=== PATIENT | female | born 1960 | race Caucasian/White ===

== ENCOUNTER 2017-08-26 15:00 | Outpatient (RCR) | payer MEDICARE, SELFPAY ==
[2017-08-19 18:53] VITALS: BP 164/68; PULSE 64; RESP 20; TEMP 36.9; BMI 46.6
--- NOTE | 2017-08-19 20:58 | PCM.WC.HP ---
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 Status: Chronic Current Visit: Yes Code(s): I70.235 - Atherosclerosis of [place] arteries of right leg with ulceration of other part of foot (3) Atherosclerosis of [place] arteries of left leg with ulceration of other part of foot Status: Chronic Current Visit: Yes Code(s): I70.245 - Atherosclerosis of [place] arteries of left leg with ulceration of other part of foot (4) Diabetes Status: Chronic Current Visit: Yes Qualifiers: Diabetes mellitus type: type 2 Diabetes mellitus complication status: with unspecified complications Diabetes mellitus terminal system operator insulin use: unspecified care home insulin use status Qualified Code(s): E11.8 - Type 2 diabetes mellitus with unspecified complications Code(s): E11.9 - Type 2 diabetes mellitus without complications (5) CAD (coronary artery disease) of bypass graft Status: Chronic Current Visit: Yes Qualifiers: [place] vs. transplanted heart: [place] heart Associated angina: with unspecified angina Qualified Code(s): I25.709 - Atherosclerosis of coronary artery bypass graft(s), unspecified, with unspecified angina pectoris Code(s): I25.810 - Atherosclerosis of coronary artery bypass graft(s) without angina pectoris (6) Lymphedema of both lower extremities Status: Chronic Current Visit: Yes Code(s): I89.0 - Lymphedema, not elsewhere classified History of Present Illness Date of Service: 08/19/17 Chief Complaint: Wounds of toes b/l History of Wound: Ina is a 56 yo female that is a resident of [facility] who presents for evaluation of wounds of her toes bilaterally. The areas on her toes are black and nothing has been used on them. She has a h/o PAD with previous angioplasty done at [facility] and arterial studies done at [facility] as well within the last year. She states that the wounds have been present for about a month and likely occurred from her toes being hit against things while in her wheelchair. She doesn't always wear shoes while in the nursing facility. She denies fever or chills. She has lymphedema which they are treating with CARLOS bandage wraps. Past Medical History Past Medical History: Chronic Problems PAD (peripheral artery disease) (Chronic) Atherosclerosis of [place] arteries of right leg with ulceration of other part of foot (Chronic) Atherosclerosis of [place] arteries of left leg with ulceration of other part of foot (Chronic) Lymphedema of both lower extremities (Chronic) Shoulder pain, bilateral (Chronic) Diabetes (Chronic) Anxiety (Chronic) Hypertension (Chronic) H/O mitral valve replacement with mechanical valve (Chronic) CAD (coronary artery disease) of bypass graft (Chronic) History of ischemic cerebrovascular accident (CVA) with residual deficit (Chronic) Hyperlipidemia (Chronic) Cardiomyopathy (Chronic) h/o cva with left sided weakness (Chronic) Surgical History: - - MVR, TVR, BL LE vascular intervention, cardiac bypass surgery x 2010,2013, [facility]ic[facility] and [facility]. Allergies/Adverse Reactions: Allergies adhesive tape Allergy (Verified 07/06/17 11:17) Rash ciprofloxacin Allergy (Verified 07/06/17 11:17) Diarrhea Home Medications: Ambulatory Orders Medication Instructions Recorded Insulin Glargine [Lantus SoloStar 30 units SC QHS 06/18/13 Pen] Insulin Lispro [Humalog] 12 unit SQ TID 06/18/13 Potassium Chloride [K-Dur] 20 meq PO BID 06/18/13 Acetaminophen [Tylenol Tablet] 650 mg PO Q4H PRN PRN 11/30/15 Aspirin [Aspirin, Baby] 81 mg PO DAILY@0800 11/30/15 Atorvastatin Calcium [Lipitor] 80 mg PO QHS 11/30/15 Carvedilol [Coreg (Beta Carolyn)] 3.125 mg PO BID 11/30/15 Duloxetine Hcl [Cymbalta] 60 mg PO DAILY 11/30/15 Levothyroxine Sodium [Unithroid] 62.5 mcg PO DAILY 11/30/15 Ondansetron [Zofran Odt] 4 mg PO Q8H PRN PRN 11/30/15 Nystatin/Triamcin Oint [Mycolog] 1 applic TOPICAL BID 01/22/16 Amiodarone HCl [Cordarone] 200 mg PO DAILY tablet 07/01/17 Gabapentin [Neurontin] 300 mg PO TIDCM #1 tablet 07/01/17 Torsemide [Demadex] 150 mg PO DAILY tablet 07/01/17 Warfarin [Coumadin] 10 mg PO DAILY #60 tablet 07/01/17 Albuterol Inhaler [Ventolin Hfa] 2 puff INHALATION Q6H PRN PRN 07/06/17 Ipratropium/Albuterol Sulfate 3 ml INHALATION DAILY PRN PRN 07/06/17 [Duoneb] Isosorbide Dinitrate 10 mg PO TID 07/06/17 Meclizine HCl [Antivert] 25 mg PO TID PRN PRN 07/06/17 Nitroglycerin [Nitrostat] 0.4 mg SUBLINGUAL Q5M PRN 07/06/17 Enoxaparin [Lovenox] 130 mg SC Q12@0600,1800 #10 syringe 07/08/17 Lisinopril [Zestril] 5 mg PO DAILY tablet 07/08/17 Nystatin Powder [Mycostatin Powder] 1 applic TOPICAL BID bottle 07/08/17 - Family History Maternal Heart Disease, Hypertension Paternal Diabetes Lives: Group Home Smoking Status: Light Smoker (<10/day) Tobacco Use: Cigarettes Alcohol: None Drugs: None Review of Systems Constitutional: Denies: Chills, Fever, Weight Change Eyes: Denies: Pain, Vision Change HEENT: Reports: Difficulty Hearing. Denies: Difficulty Swallowing, Sinus Congestion Cardiovascular: Denies: Chest Pain, Palpitations Respiratory: Denies: Cough, Shortness of Breath Gastrointestinal: Denies: Diarrhea, Nausea, Vomiting Genitourinary: Denies: Dysuria, Hematuria Musculoskeletal: Reports: Leg Pain Skin: Reports: Wounds Endocrine: Denies: Heat/ Cold Intolerance, Polydipsia, Polyuria Hematologic/ Lymphatic: Denies: Easy Bruising, Easy Bleeding - Physical Exam Vital Signs Temp Pulse Resp BP 98.4 F 64 20 H 164/68 H 08/19/17 18:53 08/19/17 18:53 08/19/17 18:53 08/19/17 18:53 General: Alert, Oriented x3, Cooperative, No apparent distress HEENT: Atraumatic, Normocephalic Oral: Moist Mucosa Lungs: Clear to auscultation Cardiovascular: Regular rate, Regular Rhythm Abdomen: Soft, Non Tender, Obese Extremities: Diminished Peripheral Pulses, Edema Skin: Ulcer/ Wound Wound Measurements and Assessment WC - Nurse 1 - General Ulcer Measurement Start: 08/19/17 17:11 Freq: Status: Active Protocol: Activity Type Activity Date Activity User E-Sign Co-Sign Detail Recorded Client Recorded Date Recorded By Document 08/19/17 18:53 TM [id number] 08/19/17 19:07 08/19/17 18:53 Wound Center Nurse 1 [Edema Assessment] -Lower Limb Edema Present Yes -Right Calf (cm) 54.5 -Right Ankle (cm) 34.7 -Left Calf (cm) 58.5 -Left Ankle (cm) 37.6 WC - Nurse 2 - General Ulcer CM Notes Start: 08/19/17 17:11 Freq: Status: Active Protocol: Activity Type Activity Date Activity User E-Sign Co-Sign Detail Recorded Client Recorded Date Recorded By Document 08/19/17 18:04 TM [id number] 08/19/17 18:48 08/19/17 18:04 Wound Center Nurse 2 [Procedure/Treatment] #8 left 5th toe -Time 18:15 -Correct Patient Yes -Correct Side, Site, Position Yes -Correct Procedure Yes -Procedure Performed Yes -Type of Procedure Debridement -Clinical Debridement Subcutaneous -Post Debridement Size (cm) - Length 0.7 -Post Debridement Size (cm) - Width 0.5 -Post Debridement Size (cm) - Depth 0.1 -Total Square Cm 0.35 -Wound/Ulcer Outcome Not Healed -Ulcer Cleansing Rinsed/ Irrigated with Saline -Foul Odor after Cleansing No -Bioengineered Tissue No -Cetacaine [place] No -Topical Lidocaine (%) 5 -Bleeding Controlled with Pressure -Treatment Response Procedure Tolerated Well #7 left 3rd toe -Time 18:14 -Correct Patient Yes -Correct Side, Site, Position Yes -Correct Procedure Yes -Procedure Performed Yes -Type of Procedure Debridement -Clinical Debridement Subcutaneous -Post Debridement Size (cm) - Length 0.6 -Post Debridement Size (cm) - Width 0.4 -Post Debridement Size (cm) - Depth 0.1 -Total Square Cm 0.24 -Wound/Ulcer Outcome Not Healed -Ulcer Cleansing Rinsed/ Irrigated with Saline -Foul Odor after Cleansing No -Bioengineered Tissue No -Cetacaine [place] No -Topical Lidocaine (%) 5 -Bleeding Controlled with Pressure -Treatment Response Procedure Tolerated Well #6 left 2nd lateral toe -Time 18:08 -Correct Patient Yes -Correct Side, Site, Position Yes -Correct Procedure Yes -Procedure Performed Yes -Type of Procedure Debridement -Clinical Debridement Subcutaneous -Post Debridement Size (cm) - Length 0.9 -Post Debridement Size (cm) - Width 0.3 -Post Debridement Size (cm) - Depth 0.1 -Total Square Cm 0.27 -Wound/Ulcer Outcome Not Healed -Ulcer Cleansing Rinsed/ Irrigated with Saline -Foul Odor after Cleansing No -Bioengineered Tissue No -Cetacaine [place] No -Topical Lidocaine (%) 5 -Bleeding Controlled with Pressure -Treatment Response Procedure Tolerated Well #5 right 4th toe -Time 18:08 -Correct Patient Yes -Correct Side, Site, Position Yes -Correct Procedure Yes -Procedure Performed Yes -Type of Procedure Debridement -Clinical Debridement Subcutaneous -Post Debridement Size (cm) - Length 0.6 -Post Debridement Size (cm) - Width 0.3 -Post Debridement Size (cm) - Depth 0.1 -Total Square Cm 0.18 -Wound/Ulcer Outcome Not Healed -Ulcer Cleansing Rinsed/ Irrigated with Saline -Foul Odor after Cleansing No -Bioengineered Tissue No -Cetacaine [place] No -Topical Lidocaine (%) 5 -Bleeding Controlled with Pressure -Treatment Response Procedure Tolerated Well #4 right 2nd medial toe -Time 18:07 -Correct Patient Yes -Correct Side, Site, Position Yes -Correct Procedure Yes -Procedure Performed Yes -Type of Procedure Debridement -Clinical Debridement Subcutaneous -Post Debridement Size (cm) - Length 0.5 -Post Debridement Size (cm) - Width 0.5 -Post Debridement Size (cm) - Depth 0.1 -Total Square Cm 0.25 -Wound/Ulcer Outcome Not Healed -Ulcer Cleansing Rinsed/ Irrigated with Saline -Foul Odor after Cleansing No -Bioengineered Tissue No -Cetacaine [place] No -Topical Lidocaine (%) 5 -Bleeding Controlled with Pressure -Treatment Response Procedure Tolerated Well #3 right 2nd lateral toe -Time 18:06 -Correct Patient Yes -Correct Side, Site, Position Yes -Correct Procedure Yes -Procedure Performed Yes -Type of Procedure Debridement -Clinical Debridement Subcutaneous -Post Debridement Size (cm) - Length 0.3 -Post Debridement Size (cm) - Width 0.2 -Post Debridement Size (cm) - Depth 0.1 -Total Square Cm 0.06 -Wound/Ulcer Outcome Not Healed -Ulcer Cleansing Rinsed/ Irrigated with Saline -Foul Odor after Cleansing No -Bioengineered Tissue No -Cetacaine [place] No -Topical Lidocaine (%) 5 -Bleeding Controlled with Pressure -Treatment Response Procedure Tolerated Well #2 left 2nd toe -Time 18:05 -Correct Patient Yes -Correct Side, Site, Position Yes -Correct Procedure Yes -Procedure Performed Yes -Type of Procedure Debridement -Clinical Debridement Subcutaneous -Post Debridement Size (cm) - Length 0.2 -Post Debridement Size (cm) - Width 0.5 -Post Debridement Size (cm) - Depth 0.1 -Total Square Cm 0.10 -Wound/Ulcer Outcome Not Healed -Ulcer Cleansing Rinsed/ Irrigated with Saline -Foul Odor after Cleansing No -Bioengineered Tissue No -Cetacaine [place] No -Topical Lidocaine (%) 5 -Bleeding Controlled with Pressure -Treatment Response Procedure Tolerated Well #1 left great toe -Time 18:05 -Correct Patient Yes -Correct Side, Site, Position Yes -Correct Procedure Yes -Procedure Performed Yes -Type of Procedure Debridement -Clinical Debridement Subcutaneous -Post Debridement Size (cm) - Length 0.7 -Post Debridement Size (cm) - Width 1.0 -Post Debridement Size (cm) - Depth 0.1 -Total Square Cm 0.70 -Wound/Ulcer Outcome Not Healed -Ulcer Cleansing Rinsed/ Irrigated with Saline -Foul Odor after Cleansing No -Bioengineered Tissue No -Cetacaine [place] No -Topical Lidocaine (%) 5 -Bleeding Controlled with Pressure -Treatment Response Procedure Tolerated Well [See Physician Procedure note for Specifics] Pain Scale: 0-10 Numeric [Pain] -Is Patient Pain Free? Yes Psych/Mental Status: Normal Affect, Appropriate Debridement Note Post-Debridement Measurements/Treatment WC - Nurse 2 - General Ulcer CM Notes Start: 08/19/17 17:11 Freq: Status: Active Protocol: Activity Type Activity Date Activity User E-Sign Co-Sign Detail Recorded Client Recorded Date Recorded By Document 08/19/17 18:04 TM [id number] 08/19/17 18:48 TM 08/19/17 18:04 Wound Center Nurse 2 #8 left 5th toe -Time 18:15 -Correct Patient Yes -Correct Side, Site, Position Yes -Correct Procedure Yes -Procedure Performed Yes -Type of Procedure Debridement -Clinical Debridement Subcutaneous -Post Debridement Size (cm) - Length 0.7 -Post Debridement Size (cm) - Width 0.5 -Post Debridement Size (cm) - Depth 0.1 -Total Square Cm 0.35 -Wound/Ulcer Outcome Not Healed -Ulcer Cleansing Rinsed/ Irrigated with Saline -Foul Odor after Cleansing No -Bioengineered Tissue No -Cetacaine [place] No -Topical Lidocaine (%) 5 -Bleeding Controlled with Pressure -Treatment Response Procedure Tolerated Well #7 left 3rd toe -Time 18:14 -Correct Patient Yes -Correct Side, Site, Position Yes -Correct Procedure Yes -Procedure Performed Yes -Type of Procedure Debridement -Clinical Debridement Subcutaneous -Post Debridement Size (cm) - Length 0.6 -Post Debridement Size (cm) - Width 0.4 -Post Debridement Size (cm) - Depth 0.1 -Total Square Cm 0.24 -Wound/Ulcer Outcome Not Healed -Ulcer Cleansing Rinsed/ Irrigated with Saline -Foul Odor after Cleansing No -Bioengineered Tissue No -Cetacaine [place] No -Topical Lidocaine (%) 5 -Bleeding Controlled with Pressure -Treatment Response Procedure Tolerated Well #6 left 2nd lateral toe -Time 18:08 -Correct Patient Yes -Correct Side, Site, Position Yes -Correct Procedure Yes -Procedure Performed Yes -Type of Procedure Debridement -Clinical Debridement Subcutaneous -Post Debridement Size (cm) - Length 0.9 -Post Debridement Size (cm) - Width 0.3 -Post Debridement Size (cm) - Depth 0.1 -Total Square Cm 0.27 -Wound/Ulcer Outcome Not Healed -Ulcer Cleansing Rinsed/ Irrigated with Saline -Foul Odor after Cleansing No -Bioengineered Tissue No -Cetacaine [place] No -Topical Lidocaine (%) 5 -Bleeding Controlled with Pressure -Treatment Response Procedure Tolerated Well #5 right 4th toe -Time 18:08 -Correct Patient Yes -Correct Side, Site, Position Yes -Correct Procedure Yes -Procedure Performed Yes -Type of Procedure Debridement -Clinical Debridement Subcutaneous -Post Debridement Size (cm) - Length 0.6 -Post Debridement Size (cm) - Width 0.3 -Post Debridement Size (cm) - Depth 0.1 -Total Square Cm 0.18 -Wound/Ulcer Outcome Not Healed -Ulcer Cleansing Rinsed/ Irrigated with Saline -Foul Odor after Cleansing No -Bioengineered Tissue No -Cetacaine [place] No -Topical Lidocaine (%) 5 -Bleeding Controlled with Pressure -Treatment Response Procedure Tolerated Well #4 right 2nd medial toe -Time 18:07 -Correct Patient Yes -Correct Side, Site, Position Yes -Correct Procedure Yes -Procedure Performed Yes -Type of Procedure Debridement -Clinical Debridement Subcutaneous -Post Debridement Size (cm) - Length 0.5 -Post Debridement Size (cm) - Width 0.5 -Post Debridement Size (cm) - Depth 0.1 -Total Square Cm 0.25 -Wound/Ulcer Outcome Not Healed -Ulcer Cleansing Rinsed/ Irrigated with Saline -Foul Odor after Cleansing No -Bioengineered Tissue No -Cetacaine [place] No -Topical Lidocaine (%) 5 -Bleeding Controlled with Pressure -Treatment Response Procedure Tolerated Well #3 right 2nd lateral toe -Time 18:06 -Correct Patient Yes -Correct Side, Site, Position Yes -Correct Procedure Yes -Procedure Performed Yes -Type of Procedure Debridement -Clinical Debridement Subcutaneous -Post Debridement Size (cm) - Length 0.3 -Post Debridement Size (cm) - Width 0.2 -Post Debridement Size (cm) - Depth 0.1 -Total Square Cm 0.06 -Wound/Ulcer Outcome Not Healed -Ulcer Cleansing Rinsed/ Irrigated with Saline -Foul Odor after Cleansing No -Bioengineered Tissue No -Cetacaine [place] No -Topical Lidocaine (%) 5 -Bleeding Controlled with Pressure -Treatment Response Procedure Tolerated Well #2 left 2nd toe -Time 18:05 -Correct Patient Yes -Correct Side, Site, Position Yes -Correct Procedure Yes -Procedure Performed Yes -Type of Procedure Debridement -Clinical Debridement Subcutaneous -Post Debridement Size (cm) - Length 0.2 -Post Debridement Size (cm) - Width 0.5 -Post Debridement Size (cm) - Depth 0.1 -Total Square Cm 0.10 -Wound/Ulcer Outcome Not Healed -Ulcer Cleansing Rinsed/ Irrigated with Saline -Foul Odor after Cleansing No -Bioengineered Tissue No -Cetacaine [place] No -Topical Lidocaine (%) 5 -Bleeding Controlled with Pressure -Treatment Response Procedure Tolerated Well #1 left great toe -Time 18:05 -Correct Patient Yes -Correct Side, Site, Position Yes -Correct Procedure Yes -Procedure Performed Yes -Type of Procedure Debridement -Clinical Debridement Subcutaneous -Post Debridement Size (cm) - Length 0.7 -Post Debridement Size (cm) - Width 1.0 -Post Debridement Size (cm) - Depth 0.1 -Total Square Cm 0.70 -Wound/Ulcer Outcome Not Healed -Ulcer Cleansing Rinsed/ Irrigated with Saline -Foul Odor after Cleansing No -Bioengineered Tissue No -Cetacaine [place] No -Topical Lidocaine (%) 5 -Bleeding Controlled with Pressure -Treatment Response Procedure Tolerated Well Pain Scale: 0-10 Numeric Is Patient Pain Free? Yes Wound debrided: left 5th toe Laterality: Left Type of Debridement: Excisional debridement Anesthesia Used: 4% Lidocaine Solution, 5% Lidocaine Gel Depth: Down to and including healthy tissue, in the subcutaneous layer Percentage of wound debrided: 100 Instrument Used: 5mm curette Tissue Removed: eschar and devitalized tissue Severity: Fat Layer Exposed Amount of bleeding with debridement: Mild Bleeding Controlled with: Compression and gauze Patient tolerated procedure well - Additional Wound Wound debrided: left 3rd toe Laterality: Left Type of Debridement: Excisional debridement Anesthesia Used: 4% Lidocaine Solution, 5% Lidocaine Gel Depth: Down to and including healthy tissue, in the subcutaneous layer Percentage of wound debrided: 100 Instrument Used: 5mm curette Tissue Removed: eschar and devitalized tissue Severity: Fat Layer Exposed Amount of bleeding with debridement: Mild Bleeding Controlled with: Compression and gauze Patient tolerated procedure: Patient tolerated procedure well - Additional Wound Wound debrided: left 2nd lateral toe Laterality: Left Type of Debridement: Excisional debridement Anesthesia Used: 4% Lidocaine Solution, 5% Lidocaine Gel Depth: Down to and including healthy tissue, in the subcutaneous layer Percentage of wound debrided: 100 Instrument Used: 5mm curette Tissue Removed: eschar and devitalized tissue Severity: Fat Layer Exposed Amount of bleeding with debridement: Mild Bleeding Controlled with: Compression and gauze Patient tolerated procedure: Patient tolerated procedure well - Additional Wound Wound debrided: right 4th toe Laterality: Right Type of Debridement: Excisional debridement Anesthesia Used: 4% Lidocaine Solution, 5% Lidocaine Gel Depth: Down to and including healthy tissue, in the subcutaneous layer Percentage of wound debrided: 100 Instrument Used: 5mm curette Tissue Removed: eschar and devitalized tissue Severity: Fat Layer Exposed Amount of bleeding with debridement: Mild Bleeding Controlled with: Compression and gauze Patient tolerated procedure: Patient tolerated procedure well - Additional Wound Wound debrided: right 2nd medial toe Laterality: Right Type of Debridement: Excisional debridement Anesthesia Used: 4% Lidocaine Solution, 5% Lidocaine Gel Depth: Down to and including healthy tissue, in the subcutaneous layer Percentage of wound debrided: 100 Instrument Used: 5mm curette Tissue Removed: eschar and devitalized tissue Severity: Fat Layer Exposed Amount of bleeding with debridement: Mild Bleeding Controlled with: Compression and gauze Patient tolerated procedure: Patient tolerated procedure well - Additional Wound Wound debrided: right 2nd lateral toe Laterality: Right Type of Debridement: Excisional debridement Anesthesia Used: 4% Lidocaine Solution, 5% Lidocaine Gel Depth: Down to and including healthy tissue, in the subcutaneous layer Percentage of wound debrided: 100 Instrument Used: 5mm curette Tissue Removed: eschar and devitalized tissue Severity: Fat Layer Exposed Amount of bleeding with debridement: Mild Bleeding Controlled with: Compression and gauze Patient tolerated procedure: Patient tolerated procedure well - Additional Wound Wound debrided: left 2nd toe Laterality: Left Type of Debridement: Excisional debridement Anesthesia Used: 4% Lidocaine Solution, 5% Lidocaine Gel Depth: Down to and including healthy tissue, in the subcutaneous layer Percentage of wound debrided: 100 Instrument Used: 5mm curette Tissue Removed: eschar and devitalized tissue Severity: Fat Layer Exposed Amount of bleeding with debridement: Mild Bleeding Controlled with: Compression and gauze Patient tolerated procedure: Patient tolerated procedure well - Additional Wound Wound debrided: left great toe Laterality: Left Type of Debridement: Excisional debridement Anesthesia Used: 4% Lidocaine Solution, 5% Lidocaine Gel Depth: Down to and including healthy tissue, in the subcutaneous layer Percentage of wound debrided: 100 Instrument Used: 5mm curette Tissue Removed: eschar and devitalized tissue Severity: Fat Layer Exposed Amount of bleeding with debridement: Mild Bleeding Controlled with: Compression and gauze Patient tolerated procedure: Patient tolerated procedure well Assessment/Plan Active Problems PAD (peripheral artery disease) (Chronic) Atherosclerosis of [place] arteries of right leg with ulceration of other part of foot (Chronic) Atherosclerosis of [place] arteries of left leg with ulceration of other part of foot (Chronic) Lymphedema of both lower extremities (Chronic) Diabetes (Chronic) CAD (coronary artery disease) of bypass graft (Chronic) Assessment: arterial ulcers of toes b/l feet. PAD Plan: Ina's wounds were evaluated and debrided today. The areas of black eschar were unroofed as above and revealed multiple shallow ulcers/wounds. These will be treated with Aquacel Ag and her edema will continue to be treated with Carlos wraps. Will obtain her previous arterial studies from [facility]. Will have her wear footwear or foam booties while she is in wheelchair to avoid injury and recurrent ulcerations. Recent labs reviewed. Encouraged increased protein intake and offloading of her wounds. She was advised to call sooner if increased erythema or drainage. F/U in 1 week.
--- NOTE | 2017-08-19 21:12 | HP.PCM_ITS ---
(1) PAD (peripheral artery disease) Status: Chronic Current Visit: Yes Code(s): I73.9 - Peripheral vascular disease, unspecified (2) Atherosclerosis of [place] arteries of right leg with ulceration of other part of foot Status: Chronic Current Visit: Yes Code(s): I70.235 - Atherosclerosis of [place] arteries of right leg with ulceration of other part of foot (3) Atherosclerosis of [place] arteries of left leg with ulceration of other part of foot Status: Chronic Current Visit: Yes Code(s): I70.245 - Atherosclerosis of [place] arteries of left leg with ulceration of other part of foot (4) Diabetes Status: Chronic Current Visit: Yes Qualifiers: Diabetes mellitus type: type 2 Diabetes mellitus complication status: with unspecified complications Diabetes mellitus clinic mgr insulin use: unspecified group home insulin use status Qualified Code(s): E11.8 - Type 2 diabetes mellitus with unspecified complications Code(s): E11.9 - Type 2 diabetes mellitus without complications (5) CAD (coronary artery disease) of bypass graft Status: Chronic Current Visit: Yes Qualifiers: [place] vs. transplanted heart: [place] heart Associated angina: with unspecified angina Qualified Code(s): I25.709 - Atherosclerosis of coronary artery bypass graft(s), unspecified, with unspecified angina pectoris Code(s): I25.810 - Atherosclerosis of coronary artery bypass graft(s) without angina pectoris (6) Lymphedema of both lower extremities Status: Chronic Current Visit: Yes Code(s): I89.0 - Lymphedema, not elsewhere classified History of Present Illness Date of Service: 08/19/17 Chief Complaint: Wounds of toes b/l History of Wound: Ina is a 56 yo female that is a resident of [facility] who presents for evaluation of wounds of her toes bilaterally. The areas on her toes are black and nothing has been used on them. She has a h/ o PAD with previous angioplasty done at [facility] and arterial studies done at [facility] as well within the last year. She states that the wounds have been present for about a month and likely occurred from her toes being hit against things while in her wheelchair. She doesn't always wear shoes while in the nursing facility. She denies fever or chills. She has lymphedema which they are treating with CARLOS bandage wraps. Past Medical History Past Medical History: Chronic Problems PAD (peripheral artery disease) (Chronic) Atherosclerosis of [place] arteries of right leg with ulceration of other part of foot (Chronic) Atherosclerosis of [place] arteries of left leg with ulceration of other part of foot (Chronic) Lymphedema of both lower extremities (Chronic) Shoulder pain, bilateral (Chronic) Diabetes (Chronic) Anxiety (Chronic) Hypertension (Chronic) H/O mitral valve replacement with mechanical valve (Chronic) CAD (coronary artery disease) of bypass graft (Chronic) History of ischemic cerebrovascular accident (CVA) with residual deficit ( Chronic) Hyperlipidemia (Chronic) Cardiomyopathy (Chronic) h/o cva with left sided weakness (Chronic) Surgical History: - - MVR, TVR, BL LE vascular intervention, cardiac bypass surgery x 2010,2013, [facility]ic[facility]. Allergies/Adverse Reactions: Allergies adhesive tape Allergy (Verified 07/06/17 11:17) Rash ciprofloxacin Allergy (Verified 07/06/17 11:17) Diarrhea Home Medications: Ambulatory Orders Medication Instructions Recorded Insulin Glargine [Lantus SoloStar 30 units SC QHS 06/18/13 Pen] Insulin Lispro [Humalog] 12 unit SQ TID 06/18/13 Potassium Chloride [K-Dur] 20 meq PO BID 06/18/13 Acetaminophen [Tylenol Tablet] 650 mg PO Q4H PRN PRN 11/30/15 Aspirin [Aspirin, Baby] 81 mg PO DAILY@0800 11/30/15 Atorvastatin Calcium [Lipitor] 80 mg PO QHS 11/30/15 Carvedilol [Coreg (Beta Carolyn)] 3.125 mg PO BID 11/30/15 Duloxetine Hcl [Cymbalta] 60 mg PO DAILY 11/30/15 Levothyroxine Sodium [Unithroid] 62.5 mcg PO DAILY 11/30/15 Ondansetron [Zofran Odt] 4 mg PO Q8H PRN PRN 11/30/15 Nystatin/Triamcin Oint [Mycolog] 1 applic TOPICAL BID 01/22/16 Amiodarone HCl [Cordarone] 200 mg PO DAILY tablet 07/01/17 Gabapentin [Neurontin] 300 mg PO TIDCM #1 tablet 07/01/17 Torsemide [Demadex] 150 mg PO DAILY tablet 07/01/17 Warfarin [Coumadin] 10 mg PO DAILY #60 tablet 07/01/17 Albuterol Inhaler [Ventolin Hfa] 2 puff INHALATION Q6H PRN PRN 07/06/17 Ipratropium/Albuterol Sulfate 3 ml INHALATION DAILY PRN PRN 07/06/17 [Duoneb] Isosorbide Dinitrate 10 mg PO TID 07/06/17 Meclizine HCl [Antivert] 25 mg PO TID PRN PRN 07/06/17 Nitroglycerin [Nitrostat] 0.4 mg SUBLINGUAL Q5M PRN 07/06/17 Enoxaparin [Lovenox] 130 mg SC Q12@0600,1800 #10 syringe 07/08/17 Lisinopril [Zestril] 5 mg PO DAILY tablet 07/08/17 Nystatin Powder [Mycostatin Powder] 1 applic TOPICAL BID bottle 07/08/17 - Family History Maternal Heart Disease, Hypertension Paternal Diabetes Lives: Group Home Smoking Status: Light Smoker (<10/day) Tobacco Use: Cigarettes Alcohol: None Drugs: None Review of Systems Constitutional: Denies: Chills, Fever, Weight Change Eyes: Denies: Pain, Vision Change HEENT: Reports: Difficulty Hearing. Denies: Difficulty Swallowing, Sinus Congestion Cardiovascular: Denies: Chest Pain, Palpitations Respiratory: Denies: Cough, Shortness of Breath Gastrointestinal: Denies: Diarrhea, Nausea, Vomiting Genitourinary: Denies: Dysuria, Hematuria Musculoskeletal: Reports: Leg Pain Skin: Reports: Wounds Endocrine: Denies: Heat/ Cold Intolerance, Polydipsia, Polyuria Hematologic/ Lymphatic: Denies: Easy Bruising, Easy Bleeding - Physical Exam Vital Signs Temp Pulse Resp BP 98.4 F 64 20 H 164/68 H 08/19/17 18:53 08/19/17 18:53 08/19/17 18:53 08/19/17 18:53 General: Alert, Oriented x3, Cooperative, No apparent distress HEENT: Atraumatic, Normocephalic Oral: Moist Mucosa Lungs: Clear to auscultation Cardiovascular: Regular rate, Regular Rhythm Abdomen: Soft, Non Tender, Obese Extremities: Diminished Peripheral Pulses, Edema Skin: Ulcer/ Wound Wound Measurements and Assessment WC - Nurse 1 - General Ulcer Measurement Start: 08/19/17 17:11 Freq: Status: Active Protocol: Activity Type Activity Date Activity User E-Sign Co-Sign Detail Recorded Client Recorded Date Recorded By Document 08/19/17 18:53 TM [id number] 08/19/17 19:07 08/19/17 18:53 Wound Center Nurse 1 [Edema Assessment] -Lower Limb Edema Present Yes -Right Calf (cm) 54.5 -Right Ankle (cm) 34.7 -Left Calf (cm) 58.5 -Left Ankle (cm) 37.6 WC - Nurse 2 - General Ulcer CM Notes Start: 08/19/17 17:11 Freq: Status: Active Protocol: Activity Type Activity Date Activity User E-Sign Co-Sign Detail Recorded Client Recorded Date Recorded By Document 08/19/17 18:04 TM [id number] 08/19/17 18:48 08/19/17 18:04 Wound Center Nurse 2 [Procedure/Treatment] #8 left 5th toe -Time 18:15 -Correct Patient Yes -Correct Side, Site, Position Yes -Correct Procedure Yes -Procedure Performed Yes -Type of Procedure Debridement -Clinical Debridement Subcutaneous -Post Debridement Size (cm) - Length 0.7 -Post Debridement Size (cm) - Width 0.5 -Post Debridement Size (cm) - Depth 0.1 -Total Square Cm 0.35 -Wound/Ulcer Outcome Not Healed -Ulcer Cleansing Rinsed/ Irrigated with Saline -Foul Odor after Cleansing No -Bioengineered Tissue No -Cetacaine [place] No -Topical Lidocaine (%) 5 -Bleeding Controlled with Pressure -Treatment Response Procedure Tolerated Well #7 left 3rd toe -Time 18:14 -Correct Patient Yes -Correct Side, Site, Position Yes -Correct Procedure Yes -Procedure Performed Yes -Type of Procedure Debridement -Clinical Debridement Subcutaneous -Post Debridement Size (cm) - Length 0.6 -Post Debridement Size (cm) - Width 0.4 -Post Debridement Size (cm) - Depth 0.1 -Total Square Cm 0.24 -Wound/Ulcer Outcome Not Healed -Ulcer Cleansing Rinsed/ Irrigated with Saline -Foul Odor after Cleansing No -Bioengineered Tissue No -Cetacaine [place] No -Topical Lidocaine (%) 5 -Bleeding Controlled with Pressure -Treatment Response Procedure Tolerated Well #6 left 2nd lateral toe -Time 18:08 -Correct Patient Yes -Correct Side, Site, Position Yes -Correct Procedure Yes -Procedure Performed Yes -Type of Procedure Debridement -Clinical Debridement Subcutaneous -Post Debridement Size (cm) - Length 0.9 -Post Debridement Size (cm) - Width 0.3 -Post Debridement Size (cm) - Depth 0.1 -Total Square Cm 0.27 -Wound/Ulcer Outcome Not Healed -Ulcer Cleansing Rinsed/ Irrigated with Saline -Foul Odor after Cleansing No -Bioengineered Tissue No -Cetacaine [place] No -Topical Lidocaine (%) 5 -Bleeding Controlled with Pressure -Treatment Response Procedure Tolerated Well #5 right 4th toe -Time 18:08 -Correct Patient Yes -Correct Side, Site, Position Yes -Correct Procedure Yes -Procedure Performed Yes -Type of Procedure Debridement -Clinical Debridement Subcutaneous -Post Debridement Size (cm) - Length 0.6 -Post Debridement Size (cm) - Width 0.3 -Post Debridement Size (cm) - Depth 0.1 -Total Square Cm 0.18 -Wound/Ulcer Outcome Not Healed -Ulcer Cleansing Rinsed/ Irrigated with Saline -Foul Odor after Cleansing No -Bioengineered Tissue No -Cetacaine [place] No -Topical Lidocaine (%) 5 -Bleeding Controlled with Pressure -Treatment Response Procedure Tolerated Well #4 right 2nd medial toe -Time 18:07 -Correct Patient Yes -Correct Side, Site, Position Yes -Correct Procedure Yes -Procedure Performed Yes -Type of Procedure Debridement -Clinical Debridement Subcutaneous -Post Debridement Size (cm) - Length 0.5 -Post Debridement Size (cm) - Width 0.5 -Post Debridement Size (cm) - Depth 0.1 -Total Square Cm 0.25 -Wound/Ulcer Outcome Not Healed -Ulcer Cleansing Rinsed/ Irrigated with Saline -Foul Odor after Cleansing No -Bioengineered Tissue No -Cetacaine [place] No -Topical Lidocaine (%) 5 -Bleeding Controlled with Pressure -Treatment Response Procedure Tolerated Well #3 right 2nd lateral toe -Time 18:06 -Correct Patient Yes -Correct Side, Site, Position Yes -Correct Procedure Yes -Procedure Performed Yes -Type of Procedure Debridement -Clinical Debridement Subcutaneous -Post Debridement Size (cm) - Length 0.3 -Post Debridement Size (cm) - Width 0.2 -Post Debridement Size (cm) - Depth 0.1 -Total Square Cm 0.06 -Wound/Ulcer Outcome Not Healed -Ulcer Cleansing Rinsed/ Irrigated with Saline -Foul Odor after Cleansing No -Bioengineered Tissue No -Cetacaine [place] No -Topical Lidocaine (%) 5 -Bleeding Controlled with Pressure -Treatment Response Procedure Tolerated Well #2 left 2nd toe -Time 18:05 -Correct Patient Yes -Correct Side, Site, Position Yes -Correct Procedure Yes -Procedure Performed Yes -Type of Procedure Debridement -Clinical Debridement Subcutaneous -Post Debridement Size (cm) - Length 0.2 -Post Debridement Size (cm) - Width 0.5 -Post Debridement Size (cm) - Depth 0.1 -Total Square Cm 0.10 -Wound/Ulcer Outcome Not Healed -Ulcer Cleansing Rinsed/ Irrigated with Saline -Foul Odor after Cleansing No -Bioengineered Tissue No -Cetacaine [place] No -Topical Lidocaine (%) 5 -Bleeding Controlled with Pressure -Treatment Response Procedure Tolerated Well #1 left great toe -Time 18:05 -Correct Patient Yes -Correct Side, Site, Position Yes -Correct Procedure Yes -Procedure Performed Yes -Type of Procedure Debridement -Clinical Debridement Subcutaneous -Post Debridement Size (cm) - Length 0.7 -Post Debridement Size (cm) - Width 1.0 -Post Debridement Size (cm) - Depth 0.1 -Total Square Cm 0.70 -Wound/Ulcer Outcome Not Healed -Ulcer Cleansing Rinsed/ Irrigated with Saline -Foul Odor after Cleansing No -Bioengineered Tissue No -Cetacaine [place] No -Topical Lidocaine (%) 5 -Bleeding Controlled with Pressure -Treatment Response Procedure Tolerated Well [See Physician Procedure note for Specifics] Pain Scale: 0-10 Numeric [Pain] -Is Patient Pain Free? Yes Psych/Mental Status: Normal Affect, Appropriate Debridement Note Post-Debridement Measurements/Treatment WC - Nurse 2 - General Ulcer CM Notes Start: 08/19/17 17:11 Freq: Status: Active Protocol: Activity Type Activity Date Activity User E-Sign Co-Sign Detail Recorded Client Recorded Date Recorded By Document 08/19/17 18:04 TM [id number] 08/19/17 18:48 TM 08/19/17 18:04 Wound Center Nurse 2 #8 left 5th toe -Time 18:15 -Correct Patient Yes -Correct Side, Site, Position Yes -Correct Procedure Yes -Procedure Performed Yes -Type of Procedure Debridement -Clinical Debridement Subcutaneous -Post Debridement Size (cm) - Length 0.7 -Post Debridement Size (cm) - Width 0.5 -Post Debridement Size (cm) - Depth 0.1 -Total Square Cm 0.35 -Wound/Ulcer Outcome Not Healed -Ulcer Cleansing Rinsed/ Irrigated with Saline -Foul Odor after Cleansing No -Bioengineered Tissue No -Cetacaine [place] No -Topical Lidocaine (%) 5 -Bleeding Controlled with Pressure -Treatment Response Procedure Tolerated Well #7 left 3rd toe -Time 18:14 -Correct Patient Yes -Correct Side, Site, Position Yes -Correct Procedure Yes -Procedure Performed Yes -Type of Procedure Debridement -Clinical Debridement Subcutaneous -Post Debridement Size (cm) - Length 0.6 -Post Debridement Size (cm) - Width 0.4 -Post Debridement Size (cm) - Depth 0.1 -Total Square Cm 0.24 -Wound/Ulcer Outcome Not Healed -Ulcer Cleansing Rinsed/ Irrigated with Saline -Foul Odor after Cleansing No -Bioengineered Tissue No -Cetacaine [place] No -Topical Lidocaine (%) 5 -Bleeding Controlled with Pressure -Treatment Response Procedure Tolerated Well #6 left 2nd lateral toe -Time 18:08 -Correct Patient Yes -Correct Side, Site, Position Yes -Correct Procedure Yes -Procedure Performed Yes -Type of Procedure Debridement -Clinical Debridement Subcutaneous -Post Debridement Size (cm) - Length 0.9 -Post Debridement Size (cm) - Width 0.3 -Post Debridement Size (cm) - Depth 0.1 -Total Square Cm 0.27 -Wound/Ulcer Outcome Not Healed -Ulcer Cleansing Rinsed/ Irrigated with Saline -Foul Odor after Cleansing No -Bioengineered Tissue No -Cetacaine [place] No -Topical Lidocaine (%) 5 -Bleeding Controlled with Pressure -Treatment Response Procedure Tolerated Well #5 right 4th toe -Time 18:08 -Correct Patient Yes -Correct Side, Site, Position Yes -Correct Procedure Yes -Procedure Performed Yes -Type of Procedure Debridement -Clinical Debridement Subcutaneous -Post Debridement Size (cm) - Length 0.6 -Post Debridement Size (cm) - Width 0.3 -Post Debridement Size (cm) - Depth 0.1 -Total Square Cm 0.18 -Wound/Ulcer Outcome Not Healed -Ulcer Cleansing Rinsed/ Irrigated with Saline -Foul Odor after Cleansing No -Bioengineered Tissue No -Cetacaine [place] No -Topical Lidocaine (%) 5 -Bleeding Controlled with Pressure -Treatment Response Procedure Tolerated Well #4 right 2nd medial toe -Time 18:07 -Correct Patient Yes -Correct Side, Site, Position Yes -Correct Procedure Yes -Procedure Performed Yes -Type of Procedure Debridement -Clinical Debridement Subcutaneous -Post Debridement Size (cm) - Length 0.5 -Post Debridement Size (cm) - Width 0.5 -Post Debridement Size (cm) - Depth 0.1 -Total Square Cm 0.25 -Wound/Ulcer Outcome Not Healed -Ulcer Cleansing Rinsed/ Irrigated with Saline -Foul Odor after Cleansing No -Bioengineered Tissue No -Cetacaine [place] No -Topical Lidocaine (%) 5 -Bleeding Controlled with Pressure -Treatment Response Procedure Tolerated Well #3 right 2nd lateral toe -Time 18:06 -Correct Patient Yes -Correct Side, Site, Position Yes -Correct Procedure Yes -Procedure Performed Yes -Type of Procedure Debridement -Clinical Debridement Subcutaneous -Post Debridement Size (cm) - Length 0.3 -Post Debridement Size (cm) - Width 0.2 -Post Debridement Size (cm) - Depth 0.1 -Total Square Cm 0.06 -Wound/Ulcer Outcome Not Healed -Ulcer Cleansing Rinsed/ Irrigated with Saline -Foul Odor after Cleansing No -Bioengineered Tissue No -Cetacaine [place] No -Topical Lidocaine (%) 5 -Bleeding Controlled with Pressure -Treatment Response Procedure Tolerated Well #2 left 2nd toe -Time 18:05 -Correct Patient Yes -Correct Side, Site, Position Yes -Correct Procedure Yes -Procedure Performed Yes -Type of Procedure Debridement -Clinical Debridement Subcutaneous -Post Debridement Size (cm) - Length 0.2 -Post Debridement Size (cm) - Width 0.5 -Post Debridement Size (cm) - Depth 0.1 -Total Square Cm 0.10 -Wound/Ulcer Outcome Not Healed -Ulcer Cleansing Rinsed/ Irrigated with Saline -Foul Odor after Cleansing No -Bioengineered Tissue No -Cetacaine [place] No -Topical Lidocaine (%) 5 -Bleeding Controlled with Pressure -Treatment Response Procedure Tolerated Well #1 left great toe -Time 18:05 -Correct Patient Yes -Correct Side, Site, Position Yes -Correct Procedure Yes -Procedure Performed Yes -Type of Procedure Debridement -Clinical Debridement Subcutaneous -Post Debridement Size (cm) - Length 0.7 -Post Debridement Size (cm) - Width 1.0 -Post Debridement Size (cm) - Depth 0.1 -Total Square Cm 0.70 -Wound/Ulcer Outcome Not Healed -Ulcer Cleansing Rinsed/ Irrigated with Saline -Foul Odor after Cleansing No -Bioengineered Tissue No -Cetacaine [place] No -Topical Lidocaine (%) 5 -Bleeding Controlled with Pressure -Treatment Response Procedure Tolerated Well Pain Scale: 0-10 Numeric Is Patient Pain Free? Yes Wound debrided: left 5th toe Laterality: Left Type of Debridement: Excisional debridement Anesthesia Used: 4% Lidocaine Solution, 5% Lidocaine Gel Depth: Down to and including healthy tissue, in the subcutaneous layer Percentage of wound debrided: 100 Instrument Used: 5mm curette Tissue Removed: eschar and devitalized tissue Severity: Fat Layer Exposed Amount of bleeding with debridement: Mild Bleeding Controlled with: Compression and gauze Patient tolerated procedure well - Additional Wound Wound debrided: left 3rd toe Laterality: Left Type of Debridement: Excisional debridement Anesthesia Used: 4% Lidocaine Solution, 5% Lidocaine Gel Depth: Down to and including healthy tissue, in the subcutaneous layer Percentage of wound debrided: 100 Instrument Used: 5mm curette Tissue Removed: eschar and devitalized tissue Severity: Fat Layer Exposed Amount of bleeding with debridement: Mild Bleeding Controlled with: Compression and gauze Patient tolerated procedure: Patient tolerated procedure well - Additional Wound Wound debrided: left 2nd lateral toe Laterality: Left Type of Debridement: Excisional debridement Anesthesia Used: 4% Lidocaine Solution, 5% Lidocaine Gel Depth: Down to and including healthy tissue, in the subcutaneous layer Percentage of wound debrided: 100 Instrument Used: 5mm curette Tissue Removed: eschar and devitalized tissue Severity: Fat Layer Exposed Amount of bleeding with debridement: Mild Bleeding Controlled with: Compression and gauze Patient tolerated procedure: Patient tolerated procedure well - Additional Wound Wound debrided: right 4th toe Laterality: Right Type of Debridement: Excisional debridement Anesthesia Used: 4% Lidocaine Solution, 5% Lidocaine Gel Depth: Down to and including healthy tissue, in the subcutaneous layer Percentage of wound debrided: 100 Instrument Used: 5mm curette Tissue Removed: eschar and devitalized tissue Severity: Fat Layer Exposed Amount of bleeding with debridement: Mild Bleeding Controlled with: Compression and gauze Patient tolerated procedure: Patient tolerated procedure well - Additional Wound Wound debrided: right 2nd medial toe Laterality: Right Type of Debridement: Excisional debridement Anesthesia Used: 4% Lidocaine Solution, 5% Lidocaine Gel Depth: Down to and including healthy tissue, in the subcutaneous layer Percentage of wound debrided: 100 Instrument Used: 5mm curette Tissue Removed: eschar and devitalized tissue Severity: Fat Layer Exposed Amount of bleeding with debridement: Mild Bleeding Controlled with: Compression and gauze Patient tolerated procedure: Patient tolerated procedure well - Additional Wound Wound debrided: right 2nd lateral toe Laterality: Right Type of Debridement: Excisional debridement Anesthesia Used: 4% Lidocaine Solution, 5% Lidocaine Gel Depth: Down to and including healthy tissue, in the subcutaneous layer Percentage of wound debrided: 100 Instrument Used: 5mm curette Tissue Removed: eschar and devitalized tissue Severity: Fat Layer Exposed Amount of bleeding with debridement: Mild Bleeding Controlled with: Compression and gauze Patient tolerated procedure: Patient tolerated procedure well - Additional Wound Wound debrided: left 2nd toe Laterality: Left Type of Debridement: Excisional debridement Anesthesia Used: 4% Lidocaine Solution, 5% Lidocaine Gel Depth: Down to and including healthy tissue, in the subcutaneous layer Percentage of wound debrided: 100 Instrument Used: 5mm curette Tissue Removed: eschar and devitalized tissue Severity: Fat Layer Exposed Amount of bleeding with debridement: Mild Bleeding Controlled with: Compression and gauze Patient tolerated procedure: Patient tolerated procedure well - Additional Wound Wound debrided: left great toe Laterality: Left Type of Debridement: Excisional debridement Anesthesia Used: 4% Lidocaine Solution, 5% Lidocaine Gel Depth: Down to and including healthy tissue, in the subcutaneous layer Percentage of wound debrided: 100 Instrument Used: 5mm curette Tissue Removed: eschar and devitalized tissue Severity: Fat Layer Exposed Amount of bleeding with debridement: Mild Bleeding Controlled with: Compression and gauze Patient tolerated procedure: Patient tolerated procedure well Assessment/Plan Active Problems PAD (peripheral artery disease) (Chronic) Atherosclerosis of [place] arteries of right leg with ulceration of other part of foot (Chronic) Atherosclerosis of [place] arteries of left leg with ulceration of other part of foot (Chronic) Lymphedema of both lower extremities (Chronic) Diabetes (Chronic) CAD (coronary artery disease) of bypass graft (Chronic) Assessment: arterial ulcers of toes b/l feet. PAD Plan: Ina's wounds were evaluated and debrided today. The areas of black eschar were unroofed as above and revealed multiple shallow ulcers/wounds. These will be treated with Aquacel Ag and her edema will continue to be treated with Carlos wraps. Will obtain her previous arterial studies from [facility]. Will have her wear footwear or foam booties while she is in wheelchair to avoid injury and recurrent ulcerations. Recent labs reviewed. Encouraged increased protein intake and offloading of her wounds. She was advised to call sooner if increased erythema or drainage. F/U in 1 week.
== END 2017-09-11 23:59 ==
LOC: WC 15:00
PROVIDERS: Family Provider Family Medicine; PCP Family Medicine; Visit Provider Family Medicine
DX: E11.622 Type 2 diabetes mellitus with other skin ulcer (principal); I70.245 Atherosclerosis of native arteries of left leg with ulceration of other part of foot; L97.522 Non-pressure chronic ulcer of other part of left foot with fat layer exposed; I70.235 Atherosclerosis of native arteries of right leg with ulceration of other part of foot; L97.512 Non-pressure chronic ulcer of other part of right foot with fat layer exposed; E11.51 Type 2 diabetes mellitus with diabetic peripheral angiopathy without gangrene; I25.10 Atherosclerotic heart disease of native coronary artery without angina pectoris; Z95.1 Presence of aortocoronary bypass graft; I89.0 Lymphedema, not elsewhere classified; I10 Essential (primary) hypertension; F41.9 Anxiety disorder, unspecified; E78.5 Hyperlipidemia, unspecified; I69.354 Hemiplegia and hemiparesis following cerebral infarction affecting left non-dominant side; Z79.899 Other long term (current) drug therapy; Z79.01 Long term (current) use of anticoagulants; F17.210 Nicotine dependence, cigarettes, uncomplicated; R60.0 Localized edema; R09.89 Other specified symptoms and signs involving the circulatory and respiratory systems
CPT/HCPCS: 11042; 99203; G0463